=== PATIENT | male | born 1965 | race Caucasian/White ===

== ENCOUNTER 2019-01-22 15:53 | Emergency (ER) | payer BC ==
[2019-01-22 16:20] VITALS: BP 137/81
--- NOTE | 2019-01-22 16:39 | UC ---
Bite Injury/Animal HPI - HPI Summary HPI Summary: 53-year-old male comes in with a chief complaint of a tick bite to the left biceps region that occurred a couple days ago. He removed the tick with a tick twister. Since then is developed a rash. It's warm to touch. He does not feel sick no fevers no chills. He did take a single dose of doxycycline 100 mg by mouth on the day of the tick bite. - History of Current Complaint Chief Complaint: [place] Stated Complaint: TICK BITE Time Seen by Provider: 01/22/19 16:27 Pain Intensity: 2 - Allergies/Home Medications Allergies/Adverse Reactions: Allergies Allergy/AdvReac Type Severity Reaction Status Date / Time No Known Allergies Allergy Verified 01/22/19 16:20 PMH/Surg Hx/FS Hx/Imm Hx Previously Healthy: Yes - Surgical History Surgical History: None - Family History Known Family History: Positive: Non-Contributory - Social History Alcohol Use: None Substance Use Type: None Smoking Status (MU): Never Smoked Tobacco Review of Systems All Other Systems Reviewed And Are Negative: Yes Constitutional: Positive: Negative Skin: Positive: Rash Eyes: Positive: Negative ENT: Positive: Negative Respiratory: Positive: Negative Cardiovascular: Positive: Negative Gastrointestinal: Positive: Negative Motor: Positive: Negative Neurovascular: Positive: Negative Musculoskeletal: Positive: Negative Neurological: Positive: Negative Psychological: Positive: Negative Is Patient Immunocompromised?: No Physical Exam Triage Information Reviewed: Yes Appearance: Well-Appearing, No Pain Distress, Well-Nourished Vital Signs: Initial Vital Signs Temp 98.9 F 01/22/19 16:16 Pulse 72 01/22/19 16:16 Resp 12 01/22/19 16:16 BP 137/81 01/22/19 16:16 Pulse Ox 99 01/22/19 16:16 Vital Signs Reviewed: Yes Eye Exam: Normal Eyes: Positive: Conjunctiva Clear Neck: Positive: Supple Respiratory: Positive: No respiratory distress Musculoskeletal: Positive: Strength Intact, ROM Intact Neurological: Positive: Alert, Muscle Tone Normal Psychological: Positive: Age Appropriate Behavior Skin: Positive: Other - On the left bicep there is a 1 cm deeply erythematous area that tick removal site. The surrounding area is approximately 10 seizures centimeters diameter of blanching erythematous warm to touch rash. Bite Injury Course/Dx - Course Course Of Treatment: The rash surrounding the tick bite on the left upper arm appears to be cellulitic or acute localized reaction. It is not in the bull's-eye distribution however it could represent a Lyme disease erythema migrans rash. Therefore we will treat with doxycycline 100 mg by mouth twice a day 14 days. Patient has a reevaluated if he worsens or has any questions or concerns. - Differential Dx/Diagnosis Provider Diagnosis: Tick bite of left upper arm with infection Discharge - Sign-Out/Discharge Documenting (check all that apply): Patient Departure All imaging exams completed and their final reports reviewed: No Studies - Discharge Plan Condition: Stable Disposition: HOME Prescriptions: DOXYcycline CAP(*) [DOXYcycline 100MG CAP(*)] 100 mg PO BID #28 cap Patient Education Materials: Lyme Disease (ED), Tick Bite (ED) Referrals: Radha Mccain MD [Primary Care Provider] - Additional Instructions: FOLLOW UP WITH YOUR DOCTOR IF NOT COMPLETELY IMPROVED. GET REEVALUATED SOONER IF YOUR CONDITION WORSENS OR ANY QUESTIONS OR CONCERNS. - Billing Disposition and Condition Condition: STABLE Disposition: Home
== END 2019-01-22 16:47 | disposition home or self-care (01) ==
LOC: UCEAST 15:53
DX: S40.862A Insect bite (nonvenomous) of left upper arm, initial encounter (principal); L08.9 Local infection of the skin and subcutaneous tissue, unspecified; W57.XXXA Bitten or stung by nonvenomous insect and other nonvenomous arthropods, initial encounter; Y92.9 Unspecified place or not applicable
CPT/HCPCS: 99212; G0463